=== PATIENT | male | born 1955 | race Caucasian/White ===

== ENCOUNTER → 2020-11-17 | Outpatient (CLI) | payer OTHER, SELFPAY ==
[2020-11-17 06:05] VITALS: BMI 29.7
--- NOTE | 2020-11-17 13:30 | ASPS_PTH ---
PATIENT: EVELYN BLACKWOOD LOC: [facility] U#:[id number] AGE/SX: 65/M ROOM: RE11/17/[address]: Dr. Joe Martinez MD : 1955 BED: DIS: 11/17/2020 SPEC #: [id number] RECD: 11/17/20 15:00 STATUS: AMANDA ROBERT #: [id number] DESIRAE: 11/17/20 13:[address]: Joe Martinez DEPT: CYTOLOGY RECD BY: Gabriella Villarreal ENTERED: 11/18/20 08:02 SP TYPE: ASPIRATION OTHR DR: JULIO Pena Tissues: Thyroid gland, NOS Procedures: Special Stain Group II Cytology Other HEADER OPERATION: Right thyroid fine needle aspiration PRE-OP DIAGNOSIS: Multiple thyroid nodules TISSUE SUBMITTED: Right thyroid slides x7 DIAGNOSIS CYTOLOGY Fine needle aspiration, right thyroid nodule (smears): Negative for malignant cells. See comment. AM:eve 11/19/2020 COMMENT The specimen is paucicellular. Clinical correlation is suggested. CYTOLOGY STUDY Slides are reviewed. CYTOLOGY GROSS Received are seven smears labeled with the patient's name and designated per the requisition as right thyroid. Submitted for staining. / eve 11/18/2020 TC:5 [facility]: [id number]
== END | disposition home or self-care (01) ==
LOC: LABSPEC 15:19
PROVIDERS: PCP Physician Assistant; Visit Provider Surgery
DX: E04.2 Nontoxic multinodular goiter (principal)
CPT/HCPCS: 88161; 88313

== ENCOUNTER 2021-06-19 10:06 | Outpatient (CLI) | payer OTHER, SELFPAY ==
--- NOTE | 2021-06-19 10:13 | US_ITS ---
STUDY: THYROID ULTRASOUND REASON FOR EXAM: Male, 66 years old. Thyroid nodule TECHNIQUE: Ultrasound evaluation of the thyroid was performed with real-time and static joseph-scale imaging. COMPARISON: None. FINDINGS: RIGHT LOBE: The right lobe of the thyroid gland measures 5.2 x 2.0 x 1.9 cm. There is a homogeneous echotexture. Within the posterior midpole there is a 0.9 x 0.8 x 0.9 cm complex nodule containing minimal internal vascularity. There is an additional 0.5 x 0.4 x 0.6 cm predominantly solid nodule with in the mid pole. LEFT LOBE: The left lobe of the thyroid gland measures 4.5 x 1.5 x 1.6 cm. There is a homogeneous echotexture. There is a 0.6 x 0.4 x 0.5 cm predominantly solid nodule within the posterior midpole. There is a 0.3 cm colloid cyst. There is a 0.7 x 0.3 x 0.7 cm complex nodule within the medial aspect of the left lobe visualized as well. ISTHMUS: The isthmus measures 0.4 cm . US/Thyroid IMPRESSION: Enlarged thyroid gland associated with bilateral thyroid nodules measuring up to 0.9 x 0.8 x 0.9 cm on the right. Electronically Signed: Samantha Echevarria MD at 12:11 EST ,
== END 2021-06-19 23:59 | disposition short-term general hospital (02) ==
PROVIDERS: PCP Physician Assistant; Referring Provider Surgery; Visit Provider Surgery
DX: E04.1 Nontoxic single thyroid nodule (principal); E04.2 Nontoxic multinodular goiter
CPT/HCPCS: 76536

== ENCOUNTER → 2022-05-28 | Outpatient (CLI) | payer OTHER, SELFPAY ==
--- NOTE | 2022-05-28 15:06 | US_ITS ---
EXAM: US SOFT TISSUES HEAD AND NECK, THYROID CLINICAL INDICATION: Thyroid nodules TECHNIQUE: Sweet scale and color doppler imaging was performed of the thyroid gland. This report was created using [employer] report generation technology. COMPARISON: None. FINDINGS: LEFT THYROID LOBE: Left thyroid lobe measures 4.6 x 1.7 x 1.7 cm. 6 and 5 mm nodules are noted within the left lobe unchanged from prior exam. Homogeneous echotexture with normal vascularity. RIGHT THYROID LOBE: Right thyroid lobe measures 5.2 x 1.9 x 2.3 cm. 8 and 5 mm right thyroid nodules again noted unchanged in size and echogenicity. TI-RADS points: 3. TI-RADS category: TR3. 8 mm nodule is mildly suspicious but no FNA or follow-up is necessary given the small size of this nodule. ISTHMUS: Isthmus measures 3 mm in AP dimension. No thyroid nodules are present. US/Thyroid IMPRESSION: Stable bilateral thyroid nodules Electronically Signed: Navjot Rodriguez MD at 16:26 EST ,
== END | disposition home or self-care (01) ==
LOC: US 15:05
PROVIDERS: PCP Physician Assistant; Visit Provider Surgery
DX: E04.2 Nontoxic multinodular goiter (principal)
CPT/HCPCS: 76536

== ENCOUNTER → 2025-04-15 | Outpatient (CLI) | payer OTHER, SELFPAY ==
[2025-04-18 15:08] LABS: Calprotectin, Stool 34 ug/g (0-120)
== END | disposition home or self-care (01) ==
LOC: LABSPEC 11:13
PROVIDERS: PCP Physician Assistant; Referring Provider Student in an Organized Health Care Education/Training Program; Visit Provider Student in an Organized Health Care Education/Training Program
DX: R10.9 Unspecified abdominal pain (principal); R19.4 Change in bowel habit; K58.9 Irritable bowel syndrome, unspecified
CPT/HCPCS: 83993; 87177; 87209; 87329; 87493; 87506

== ENCOUNTER → 2025-05-07 | Outpatient (CLI) | payer OTHER, SELFPAY ==
--- NOTE | 2025-05-07 08:19 | NM_ITS ---
PROCEDURE: HEPATOBILLIARY IMG W/PHARM INT 05/07/2025 REASON FOR EXAM: RUQ PAIN TECHNIQUE: Procedure Code: [id number] Modality: NM Procedure: HEPATOBILLIARY IMG W/PHARM INT, with gallbladder ejection fraction. Intravenous Choletec with planar imaging of the abdomen. RADIOPHARMACEUTICAL: Intravenous administration of 5.7 mCi technetium 99 M mebrofenin. For the gallbladder ejection fraction component, intravenous administration of 1.9 mcg cholecystokinin. COMPARISON: None provided. FINDINGS: Satisfactory hepatic uptake and excretion was seen. Normal gallbladder visualization with the gallbladder identified by 15 minutes. Although small bowel activity is not clearly seen on the initial 60 minute images, it is clearly seen by the 25 minute post cholecystokinin image. Abnormally low gallbladder ejection fraction of 5% seen at the 20 minute timeframe. NM/Hepatobilliary Img w/Pharm Int IMPRESSION: 1. Abnormally low gallbladder ejection fraction, concerning for the presence of chronic cholecystitis. 2. No evidence of common duct obstruction. 3. Normal hepatic uptake and excretion. Reading Location: [place] [id number]
== END | disposition home or self-care (01) ==
LOC: NM 08:19
PROVIDERS: PCP Physician Assistant; Referring Provider Student in an Organized Health Care Education/Training Program; Visit Provider Student in an Organized Health Care Education/Training Program
DX: R10.11 Right upper quadrant pain (principal)
CPT/HCPCS: 78227; A9537; J2805